=== PATIENT | male | born 2000 | race Caucasian/White ===

== ENCOUNTER 2023-05-26 20:20 | Emergency (ER) | payer SELFPAY ==
[2023-05-26] MEDS ORDERED: Ibuprofen 600 MG Tab PO ONE (20:34)
== END 2023-05-26 21:12 | disposition home or self-care (01) ==
LOC: MW.ED 20:20
DX: G56.01 Carpal tunnel syndrome, right upper limb (principal); M70.941 Unspecified soft tissue disorder related to use, overuse and pressure, right hand
CPT/HCPCS: 73110; 99283; A9270

== ENCOUNTER 2024-07-25 09:01 | Inpatient (IN) | payer OTHER ==
[2024-07-25 10:17] LABS: BASOPHILS ABSOLUTE AUTO 0.07 K/uL (0.00-0.20); BASOPHILS PERCENT AUTO 0.6 % (0.0-1.0); EOSINOPHILS ABSOLUTE AUTO 0.11 K/uL (0.00-0.45); HEMATOCRIT 42.9 % (42.0-52.0); HEMOGLOBIN 14.9 g/dL (14.0-18.0); IMMATURE GRAN ABSOLUTE AUTO 0.02 K/uL (0.00-0.05); IMMATURE GRAN PERCENT AUTO 0.2 % (0.0-0.4); LYMPHOCYTES ABSOLUTE AUTO 2.08 K/uL (1.00-4.80); LYMPHOCYTES PERCENT AUTO 18.5 % (24.0-44.0); MEAN CORPUSCULAR HEMOGLOBIN 30.8 pg (28.0-32.0); MEAN CORPUSCULAR HGB CONC 34.7 g/dL (32.0-36.0); MEAN CORPUSCULAR VOLUME 88.8 fL (83.0-99.0); MEAN PLATELET VOLUME 10.2 fL (9.4-12.4); MONOCYTES ABSOLUTE AUTO 1.32 K/uL (0.00-0.80); MONOCYTES PERCENT AUTO 11.7 % (0.0-8.0); NEUTROPHILS ABSOLUTE AUTO 7.64 K/uL (1.80-7.70); PLATELET COUNT,PLT 233 K/uL (150-400); RED BLOOD CELL COUNT 4.83 M/uL (4.52-5.90); WHITE BLOOD CELL COUNT,WBC 11.24 K/uL (3.9-11.3)
[2024-07-25 10:37] LABS: A/G RATIO 1.1 (0.9-1.6); BILIRUBIN TOTAL 0.6 mg/dL (0.2-1.0); CALCIUM 9.1 mg/dL (8.5-10.1); CARBON DIOXIDE,CO2 27.1 mmol/L (21.0-32.0); CREATININE 1.1 mg/dL (0.8-1.3); EST CRCL DRUG DOSING (CG) 130.5 mL/min; POTASSIUM,K 3.9 mmol/L (3.5-5.1); PROTEIN TOTAL,TP 7.7 g/dL (6.4-8.2)
[2024-07-25] MEDS: Piperacillin/Tazobactam 4.5 GM in Sodium Chloride 0.9% 100 ML IV ONE (10:40)
[2024-07-25] MEDS: VANCOmycin 2 GM in Sodium Chloride 0.9% 500 ML IV ONE (10:40)
[2024-07-25] MEDS: Sodium Chloride 0.9% 1,000 ML IV ONE (10:40)
[2024-07-25] MEDS: Iopamidol 755 MG/ML 500 ML Multipack Bottle IVPUSH STA (13:50)
[2024-07-25] MEDS ORDERED: Piperacillin/Tazobactam 4.5 GM in Sodium Chloride 0.9% 100 ML IV SCH (15:45)
[2024-07-25] MEDS ORDERED: Bupivacaine 0.5% 30 ML SDV ONE (15:50)
[2024-07-25] MEDS ORDERED: Lidocaine 1% 20 ML MDV ONE (15:50)
[2024-07-25] MEDS ORDERED: Acetaminophen 325 MG Tab PO PRN (16:01)
[2024-07-25] MEDS ORDERED: Ondansetron 4 MG/2 ML SDV IVPUSH PRN (16:01)
[2024-07-25] MEDS ORDERED: Polyethylene Glycol 3350 Powder 17 GM Packet PO PRN (16:01)
[2024-07-25] MEDS ORDERED: Acetaminophen 650 MG Supp RECTAL PRN (16:01)
[2024-07-25] MEDS ORDERED: Midazolam 1 MG/ML 2 ML SDV ONE (16:03)
[2024-07-25] MEDS ORDERED: fentaNYL 100 MCG/2 ML SDV ONE (16:03)
[2024-07-25] MEDS ORDERED: Ketamine HCL/NACL, ISO-OSM 50 MG/5 ML Syringe ONE (16:03)
[2024-07-25] MEDS ORDERED: Propofol 200 MG/20 ML SDV ONE (16:03)
[2024-07-25] MEDS ORDERED: HYDROmorphone 1 MG/ML Syringe ONE ×2 (16:49→17:30)
[2024-07-25] MEDS ORDERED: Ondansetron 4 MG/2 ML SDV ONE (16:54)
[2024-07-25] MEDS ORDERED: Ketorolac 30 MG/ML SDV ONE (16:54)
[2024-07-25] MEDS ORDERED: dexmedeTOMIDine HCl 200 MCG/2 ML SDV ONE (17:32)
[2024-07-25] MEDS ORDERED: Sodium Chloride 0.9% 0 ML ONE (17:33)
[2024-07-25] MEDS: VANCOmycin 1.25 GM in Sodium Chloride 0.9% 250 ML IV SCH (19:31)
[2024-07-25] MEDS: Piperacillin/Tazobactam 4.5 GM in Sodium Chloride 0.9% 100 ML IV SCH (20:57)
[2024-07-25] MEDS: Ketorolac 30 MG/ML SDV IV SCH (20:58)
[2024-07-25] MEDS: Enoxaparin 30 MG/0.3 ML Syringe SUBCUT SCH ×2 (21:56→22:03)
[2024-07-25] MEDS: Enoxaparin 40 MG/0.4 ML Syringe SUBCUT SCH (22:07)
[2024-07-25] MEDS ORDERED: Naloxone 0.4 MG/ML SDV IVPUSH PRN (22:10)
[2024-07-25] MEDS: Morphine 2 MG/ML SYRINGE IVPUSH PRN (22:52)
[2024-07-26 06:01] LABS: BASOPHILS ABSOLUTE AUTO 0.06 K/uL (0.00-0.20); BASOPHILS PERCENT AUTO 0.7 % (0.0-1.0); EOSINOPHILS ABSOLUTE AUTO 0.29 K/uL (0.00-0.45); EOSINOPHILS PERCENT AUTO 3.6 % (0.0-6.0); HEMATOCRIT 41.3 % (42.0-52.0); IMMATURE GRAN ABSOLUTE AUTO 0.02 K/uL (0.00-0.05); IMMATURE GRAN PERCENT AUTO 0.2 % (0.0-0.4); LYMPHOCYTES ABSOLUTE AUTO 2.63 K/uL (1.00-4.80); LYMPHOCYTES PERCENT AUTO 32.7 % (24.0-44.0); MEAN CORPUSCULAR HEMOGLOBIN 30.7 pg (28.0-32.0); MEAN CORPUSCULAR HGB CONC 33.9 g/dL (32.0-36.0); MEAN CORPUSCULAR VOLUME 90.6 fL (83.0-99.0); MEAN PLATELET VOLUME 10.6 fL (9.4-12.4); MONOCYTES PERCENT AUTO 11.2 % (0.0-8.0); NEUTROPHILS ABSOLUTE AUTO 4.14 K/uL (1.80-7.70); NEUTROPHILS PERCENT AUTO 51.6 % (41.0-71.0); PLATELET COUNT,PLT 213 K/uL (150-400); RED BLOOD CELL COUNT 4.56 M/uL (4.52-5.90); WHITE BLOOD CELL COUNT,WBC 8.04 K/uL (3.9-11.3)
[2024-07-26 06:31] LABS: CALCIUM 8.4 mg/dL (8.5-10.1); CARBON DIOXIDE,CO2 27.9 mmol/L (21.0-32.0); CREATININE 1.3 mg/dL (0.8-1.3); EST CRCL DRUG DOSING (CG) 110.42 mL/min; POTASSIUM,K 4.1 mmol/L (3.5-5.1)
[2024-07-26] MEDS: Hyaluronidase, Human Recomb. 150 Unit/ML Vial SUBCUT ONE (09:35)
[2024-07-26] MEDS: Melatonin 3 MG Tab PO PRN (22:34)
[2024-07-27 06:23] LABS: BASOPHILS ABSOLUTE AUTO 0.05 K/uL (0.00-0.20); BASOPHILS PERCENT AUTO 0.8 % (0.0-1.0); EOSINOPHILS ABSOLUTE AUTO 0.32 K/uL (0.00-0.45); EOSINOPHILS PERCENT AUTO 4.8 % (0.0-6.0); HEMATOCRIT 41.7 % (42.0-52.0); HEMOGLOBIN 13.8 g/dL (14.0-18.0); IMMATURE GRAN ABSOLUTE AUTO 0.01 K/uL (0.00-0.05); IMMATURE GRAN PERCENT AUTO 0.2 % (0.0-0.4); LYMPHOCYTES ABSOLUTE AUTO 2.61 K/uL (1.00-4.80); LYMPHOCYTES PERCENT AUTO 39.2 % (24.0-44.0); MEAN CORPUSCULAR HEMOGLOBIN 30.5 pg (28.0-32.0); MEAN CORPUSCULAR HGB CONC 33.1 g/dL (32.0-36.0); MEAN CORPUSCULAR VOLUME 92.1 fL (83.0-99.0); MEAN PLATELET VOLUME 10.7 fL (9.4-12.4); MONOCYTES ABSOLUTE AUTO 0.75 K/uL (0.00-0.80); MONOCYTES PERCENT AUTO 11.3 % (0.0-8.0); NEUTROPHILS ABSOLUTE AUTO 2.91 K/uL (1.80-7.70); NEUTROPHILS PERCENT AUTO 43.7 % (41.0-71.0); PLATELET COUNT,PLT 214 K/uL (150-400); RED BLOOD CELL COUNT 4.53 M/uL (4.52-5.90); WHITE BLOOD CELL COUNT,WBC 6.65 K/uL (3.9-11.3)
[2024-07-27 06:44] LABS: CALCIUM 8.9 mg/dL (8.5-10.1); CARBON DIOXIDE,CO2 27.3 mmol/L (21.0-32.0); CREATININE 1.2 mg/dL (0.8-1.3); EST CRCL DRUG DOSING (CG) 119.63 mL/min; POTASSIUM,K 4.2 mmol/L (3.5-5.1)
== END 2024-07-27 11:15 | disposition home or self-care (01) | DRG 603 ==
LOC: MW.ED 09:01 → MW.MS 14:46 → UNDOADMOB 14:46 → OBSVTOIN 14:46 → INTOOBSV 14:46 → MW.SDS 16:01 → MW.MS 16:01 → MW.SDS 07-26 09:55 → MW.MS 07-26 12:03
PROVIDERS: ADMIT Family Medicine; ATTEND Family Medicine
PROC: 0J9L0ZZ Drainage of Right Upper Leg Subcutaneous Tissue and Fascia, Open Approach (ICD-10-PCS; principal; 2024-07-25 15:45)
DX: L03.115 Cellulitis of right lower limb (principal); F12.90 Cannabis use, unspecified, uncomplicated; L02.415 Cutaneous abscess of right lower limb; F10.90 Alcohol use, unspecified, uncomplicated
CPT/HCPCS: 01250; 36415; 73701-26-RT; 73701-RT; 80048; 80053; 80202; 83605; 85025; 86140; 86141; 87040; 87070; 87075; 87205; 87641; 93971-26-RT; 93971-RT; 96365; 96366; 96367; 99222; 99232; 99239; 99284-25; A9270-GY; J0131; J0665; J1171; J1650; J1885; J2250; J2270; J2405; J2543; J2704; J3010; J3371; J3473; J3490; J7030; J7040; J7050; Q9967

== ENCOUNTER 2025-05-17 12:34 | Emergency (ER) | payer OTHER ==
[2025-05-17] MEDS: Acetaminophen/oxyCODONE 325-5 MG Tab PO ONE (13:24)
== END 2025-05-17 14:14 | disposition home or self-care (01) ==
LOC: MW.ED 12:34
DX: S82.831A Other fracture of upper and lower end of right fibula, initial encounter for closed fracture (principal); S89.301A Unspecified physeal fracture of lower end of right fibula, initial encounter for closed fracture; X50.1XXA Overexertion from prolonged static or awkward postures, initial encounter
CPT/HCPCS: 29515; 73590; 99283; A9270

== ENCOUNTER 2025-05-21 09:31 | Day surgery (SDC) | payer OTHER ==
[~2025-05-21 09:31] MED LIST: Albuterol 0.083% 2.5 MG/3 ML Neb Soln NEB PRN; Naloxone 0.4 MG/ML SDV IVPUSH PRN; Ondansetron 4 MG/2 ML SDV IVPUSH PRN; ceFAZolin 2 GM in Water For Injection, Sterile 20 ML IVPUSH ONE; fentaNYL 50 MCG/ML SDV IVPUSH PRN
[2025-05-21] MEDS ORDERED: dexmedeTOMIDine HCl 200 MCG/2 ML SDV ONE (09:42)
[2025-05-21] MEDS ORDERED: Ropivacaine 0.5% 5 MG/ML 30 ML SDV ONE (09:43)
[2025-05-21] MEDS ORDERED: Bupivacaine 0.5%/EPINEPHrine 1:200,000 30 ML SDV ONE (09:50)
[2025-05-21] MEDS: Lactated Ringers 1,000 ML IV SCH (10:00)
[2025-05-21] MEDS ORDERED: Propofol 200 MG/20 ML SDV ONE (10:08)
[2025-05-21] MEDS ORDERED: fentaNYL 250 MCG/5 ML SDV ONE (10:19)
[2025-05-21] MEDS ORDERED: Dexamethasone 4 MG/ML 5 ML MDV ONE (11:02)
[2025-05-21] MEDS ORDERED: Ketorolac 30 MG/ML SDV ONE (11:02)
[2025-05-21] MEDS ORDERED: Ondansetron 4 MG/2 ML SDV ONE (11:02)
== END 2025-05-21 12:45 | disposition home or self-care (01) ==
LOC: MW.SDS 09:31
PROVIDERS: ATTEND Orthopaedic Surgery
DX: S82.831A Other fracture of upper and lower end of right fibula, initial encounter for closed fracture (principal); S93.421A Sprain of deltoid ligament of right ankle, initial encounter; F17.210 Nicotine dependence, cigarettes, uncomplicated; Z79.899 Other long term (current) drug therapy; W18.41XA Slipping, tripping and stumbling without falling due to stepping on object, initial encounter; Y93.H1 Activity, digging, shoveling and raking
CPT/HCPCS: 27792; 76000; C1713; J0690; J1100; J1308; J1885; J2405; J2704; J2795; J3010; J7120; 01480; 64447; J0665